=== PATIENT | male | born 1955 | race Two or more races ===

== ENCOUNTER 2023-08-02 08:06 | Day surgery (SDC) | payer OTHER | END 2023-08-02 13:45 | disposition home or self-care (01) | LOC: AMB-ENDOS 08:06 → CIR.AMB 08:06 → AMB-ENDOS 13:45 | PROVIDERS: ATTEND Surgery | DX: D12.2 Benign neoplasm of ascending colon (principal); K64.8 Other hemorrhoids; Z20.822 Contact with and (suspected) exposure to COVID-19 ==